=== PATIENT | male | born 1955 | race Caucasian/White ===

== ENCOUNTER 2021-11-19 15:02 | Emergency (ER) | payer OTHER ==
[~2021-11-19 15:02] MED LIST: ALBUTEROL2.5 MG/3 M INH; ALDACTAZIDE 251 EACH PO; ALVESCO6.1 G1 INH; AMLODIPINE BESYL5 MG PO; ASPIRIN EC81 MG PO; ATORVASTATIN CA20 MG PO; BREO ELLIPTA 21 EACH INH; CARDURA4 MG PO; CLOPIDOGREL75 MG PO; CYANOCOBAL1000 MCG/1 SC; DOXYCYCLINE HY100 M2 PO; ELIQUIS2.5 MG PO; ELIQUIS5 MG PO; FLOMAX0.4 MG PO; GABAPENTIN800 MG PO; GLUCOTROL 10 MG10 MG PO; HYDROCODON-ACE1 EAC6 PO; IBUPROFEN600 MG PO; IMDUR ER TAB 3030 MG PO; LANTUS100 UNIT/1 SQ; LEVAQUIN TAB 5500 MG PO; LOPRESSOR 25 MG25 MG PO; MOBIC15 MG PO; NITROSTAT0.4 MG SL; NORVASC10 MG PO; OZEMPIC 2MG/1.5ML SQ; PRINIVIL20 MG PO; PROSCAR5 MG PO; SYMBICORT 16010.2 GM INH; TRICOR145 MG PO
[2021-11-19 15:58] LABS: HEMOGLOBIN 11.5 gm/dl (14.0-17.5); RED BLOOD COUNT 3.79 M/UL (4.20-5.50); WHITE BLOOD COUNT 6.2 K/UL (4.5-11.0)
[2021-11-19 16:36] LABS: BUN/CREATININE RATIO 20 (0-10)
[2021-11-20] MEDS ORDERED: TRAMADOL HCL50 MG PO (16:33)
[2021-11-20] MEDS ORDERED: DOCUSATE SODIU100 MG PO (16:33)
[2021-11-20] MEDS ORDERED: HYDROCODON-ACE1 EAC6 PO (16:33)
[2021-11-20] MEDS ORDERED: FIASP PENF100 UNIT/1 SQ ×2 (16:34→16:35)
[2021-11-20] MEDS ORDERED: PROAIR HFA8.5 GM INH (16:35)
[2021-11-20] MEDS ORDERED: AMLODIPINE BESY10 MG PO (16:35)
[2021-11-20] MEDS ORDERED: ELIQUIS5 MG PO (16:35)
[2021-11-20] MEDS ORDERED: ASPIRIN EC81 MG PO (16:36)
[2021-11-20] MEDS ORDERED: ATORVASTATIN CA40 MG PO (16:36)
[2021-11-20] MEDS ORDERED: METOPROLOL TART25 MG PO (16:37)
[2021-11-20] MEDS ORDERED: SPIRONOLACTONE25 MG PO (16:38)
[2021-11-20] MEDS ORDERED: FLOMAX 0.4 MG0.4 MG PO (16:38)
[2021-11-20] MEDS ORDERED: TADALAFIL20 M1 PO (16:38)
[2021-11-20] MEDS ORDERED: VIAGRA100 MG PO (16:39)
== END 2021-11-20 22:20 | disposition home or self-care (01) ==
LOC: ER1 15:02
PROVIDERS: Preventive Medicine Occupational Medicine
DX: U07.1 COVID-19 (principal); R45.851 Suicidal ideations; J44.9 Chronic obstructive pulmonary disease, unspecified; I25.10 Atherosclerotic heart disease of native coronary artery without angina pectoris; E11.9 Type 2 diabetes mellitus without complications; I10 Essential (primary) hypertension; F17.200 Nicotine dependence, unspecified, uncomplicated
CPT/HCPCS: 73590; 73610; 73630; 80053; 80307; 81001; 82962; 85025; 87086; 99285; U0002

== ENCOUNTER 2021-12-13 12:23 | Observation (INO) | payer MEDICARE, OTHER ==
[~2021-12-13] VITALS: Ht 180.3 cm; Wt 96.2 kg
[~2021-12-13 12:23] MED LIST changes: +AMLODIPINE BESY10 MG PO; +ATORVASTATIN CA40 MG PO; +DOCUSATE SODIU100 MG PO; +FIASP PENF100 UNIT/1 SQ; +FLOMAX 0.4 MG0.4 MG PO; +METOPROLOL TART25 MG PO; +PROAIR HFA8.5 GM INH; +SPIRONOLACTONE25 MG PO; +TADALAFIL20 M1 PO; +TRAMADOL HCL50 MG PO; +VIAGRA100 MG PO
[2021-12-13 13:52] LABS: HEMOGLOBIN 13.4 gm/dl (14.0-17.5); RED BLOOD COUNT 4.39 M/UL (4.20-5.50); WHITE BLOOD COUNT 7.8 K/UL (4.5-11.0)
[2021-12-13 14:23] LABS: BUN/CREATININE RATIO 19 (0-10)
[2021-12-14 06:29] LABS: HEMOGLOBIN 12.4 gm/dl (14.0-17.5); RED BLOOD COUNT 4.08 M/UL (4.20-5.50); WHITE BLOOD COUNT 6.9 K/UL (4.5-11.0)
[2021-12-14 06:59] LABS: BUN/CREATININE RATIO 14 (0-10)
[2021-12-14] MEDS ORDERED: D3-501250 MCG PO (11:24)
--- NOTE | 2021-12-14 13:52 | NUR ---
patient getting up and using wheelchair with stand by assist. patient getting off the floor to smoke.
[2021-12-14] MEDS ORDERED: AMOX TR-K CLV1 EAC4 PO (15:25)
[2021-12-14] MEDS ORDERED: MIRALAX17 GM PO (15:25)
[2021-12-14] MEDS ORDERED: BISACODYL5 MG PO (15:25)
--- NOTE | 2021-12-14 17:15 | NUR ---
patient refused to eat supper, IV antibiotic and insulin. education provided r/t eating and insulin and stated he knows how to check and give insulin, and said i have all my medications at home.
== END 2021-12-14 17:05 | disposition home or self-care (01) ==
LOC: ER1 12:23 → CDU 18:34 → MED SURG 4 18:34
PROVIDERS: Emergency Medicine; ADMIT Internal Medicine
DX: K59.00 Constipation, unspecified (principal); J18.9 Pneumonia, unspecified organism; J44.0 Chronic obstructive pulmonary disease with (acute) lower respiratory infection; S32.592A Other specified fracture of left pubis, initial encounter for closed fracture; E11.9 Type 2 diabetes mellitus without complications; I10 Essential (primary) hypertension; E78.5 Hyperlipidemia, unspecified; N40.0 Benign prostatic hyperplasia without lower urinary tract symptoms; F17.200 Nicotine dependence, unspecified, uncomplicated; Z20.822 Contact with and (suspected) exposure to COVID-19; Z86.718 Personal history of other venous thrombosis and embolism; Z79.01 Long term (current) use of anticoagulants; Z79.899 Other long term (current) drug therapy; Z79.82 Long term (current) use of aspirin; X58.XXXA Exposure to other specified factors, initial encounter
CPT/HCPCS: 71045; 80048; 80053; 81001; 82962; 83036; 83605; 83690; 83735; 84439; 84443; 85025; 87040; 94640; 94760; 96374; 96375; 99285; G0378; J0696; J2270; J2405; J2543; Q9967; U0002